=== PATIENT | female | born 1940 | race Caucasian/White ===

== ENCOUNTER → 2016-11-22 | Outpatient (CLI) | payer MEDICARE, MEDICAID ==
[~2016-11-22] MED LIST: ACET-915 PO; LANS30CA47 PO; SIMV40TA2 PO
--- NOTE | 2016-11-22 18:59 | RADRPT ---
PROCEDURE: XR Knees. CLINICAL INDICATION: Bilateral knee pain. TECHNIQUE: Total of six views. Frontal, oblique, and lateral views of both knees. COMPARISON: 11/01/2015. FINDINGS: There is no fracture or dislocation. The soft tissues are normal. There are degenerative changes with osteophytes arising from all 3 joint compartment margins bilater ally. There is bilateral medial and patellofemoral joint compartment narrowing with left worse than right. There is deformity of the left medial joint compartment. There is no lytic or blastic lesion. There is no radiopaque foreign body. IMPRESSION: 1. Moderate degenerative changes of the right knee. 2. Severe degenerative changes of the left knee. 3. No significant change from 11/01/2015. RPTAT: QQ .Elvin Iqbal MD, Date Time Electronically viewed and signed by .Elvin Iqbal MD, on 11/22/2016 18:58 .R/
--- NOTE | 2016-11-27 06:29 | HKNOTE ---
DATE OF SERVICE: 11/23/2016 MAIN COMPLAINT: Pain in both knees. HISTORY OF PRESENT ILLNESS: The patient comes in requesting cortisone injections into both knees. The last cortisone injections I gave into her knees were more than a year ago, and they lasted her u ntil a few weeks ago. Sometimes the left is worse than the right. Today, the right is the main pro blem. PHYSICAL EXAMINATION GENERAL: A fit looking 76-year-old female. VITAL SIGNS: Height 5 feet 1, weight 130 pounds. Blood pressure 115/60, temperature 98.2. GAIT: The patient walks without a walking aid. She has slight antalgic gait. LEFT KNEE: The left knee shows normal alignment. Active and passive extension is 0 degrees. Active and passive flexion is 135 degrees. The medial and lateral collateral ligaments and cruciate ligamen ts are intact. Dania test is negative. There is no effusion, tenderness, scarring, or cysts. The p atella tracks normally. There is no tenderness on the articular surface of the patella or in the pat ellar groove. The Q angle is normal. There is 6+ crepitus in the knee, none in the patella. RIGHT KNEE: The right knee shows normal alignment. Active and passive extension is 0 degrees. Activ e and passive flexion is 135 degrees. The medial and lateral collateral ligaments and cruciate ligam ents are intact. Dania test is negative. There is no effusion, tenderness, scarring, or cysts. The patella tracks normally. There is no tenderness on the articular surface of the patella or in the p atellar groove. The Q angle is normal. There is 6+ crepitus in the knee, none in the patella. The patient gets pain in both knees at the limits of motion. Severe degenerative osteoarthritis of both knees. MANAGEMENT: Under sterile conditions, she was given injection of 2 mL of Kenalog and 6 mL of 2% lid ocaine into each knee, and she will be seen again as necessary. Note that we spent some time prepar ing her for the fact that she will need to have knee replacement surgeries sooner or later. The act ual procedure was discussed with her in a fair amount of detail. She was shown videos of patients' recoveries so that she might understand that the operation is not as "terrible" as it may sound to h er since she has known several people have undergone knee replacement surgeries and she is "afraid." Dictated By: KAREN STANTON/BERNARD Conf#: [id number] DID#: [id number]
== END | disposition home or self-care (01) ==
LOC: HKI 13:44
DX: M25.561 Pain in right knee (principal); M25.562 Pain in left knee; M17.0 Bilateral primary osteoarthritis of knee
CPT/HCPCS: 20610; 73562; G0463

== ENCOUNTER → 2017-03-07 | Outpatient (CLI) | END | disposition home or self-care (01) | DX: M13.861 Other specified arthritis, right knee (principal) | CPT/HCPCS: 20610; G0463; J7327 ==

== ENCOUNTER → 2018-02-14 | Outpatient (CLI) | END | disposition home or self-care (01) ==